=== PATIENT | female | born 1960 | race Two or more races ===

== ENCOUNTER 2017-04-20 16:32 | Emergency (ER) | payer BC, OTHER ==
[~2017-04-20] VITALS: Ht 160 cm; Wt 66.0 kg
[~2017-04-20 16:32] MED LIST: ACET500C5 PO; AMO500 PO
[2017-04-20 16:40] VITALS: Ht 160 cm; Wt 66.0 kg
[2017-04-20] MEDS ORDERED: SOD CHLORIDE 0.9% 1,000 ML IV STA (19:14)
[2017-04-20] MEDS ORDERED: SOD CHLORIDE 0.9% 1,000 ML IV ONE (19:30)
[2017-04-20 19:52] LABS: BASOPHIL # 0.1 10^3/ul (0.0-0.1); BASOPHILS % 0.7 % (0.0-2.0); EOSINOPHILS # 0.1 10^3/ul (0.0-0.5); EOSINOPHILS % 1.4 % (0.0-7.0); HEMATOCRIT 39.1 % (37.0-47.0); HEMOGLOBIN 13.1 g/dl (12.0-16.0); LYMPHOCYTES # 2.3 10^3/ul (0.8-2.9); LYMPHOCYTES % 31.8 % (15.0-51.0); MEAN CORPUSCULAR HEMOGLOBIN 28.7 pg (29.0-33.0); MEAN CORPUSCULAR HGB CONC 33.5 g/dl (32.0-37.0); MEAN CORPUSCULAR VOLUME 85.7 fl (82.0-101.0); MEAN PLATELET VOLUME 9.9 fl (7.4-10.4); MONOCYTE # 0.4 10^3/ul (0.3-0.9); MONOCYTES % 5.5 % (0.0-11.0); NEUTROPHILS % 60.1 % (39.0-77.0); PLATELET COUNT 239 10^3/UL (140-415); RED BLOOD COUNT 4.56 10^6/ul (4.20-5.40); RED CELL DISTRIBUTION WIDTH 11.8 % (11.5-14.5); WHITE BLOOD COUNT 7.3 10^3/ul (4.8-10.8)
[2017-04-20] MEDS ORDERED: CHLO50TA15 PO (20:12)
[2017-04-20 20:13] LABS: ALBUMIN 4.6 g/dl (3.3-4.9); ALBUMIN/GLOBULIN RATIO 1.21; BILIRUBIN,INDIRECT 0.2 mg/dl (0-1.1); BILIRUBIN,TOTAL 0.2 mg/dl (0.2-1.3); CALCIUM 9.3 mg/dl (8.4-10.2); CREATININE 0.8 mg/dl (0.44-1.00); POTASSIUM 3.4 mmol/L (3.5-5.1); TOTAL PROTEIN 8.4 g/dl (6.1-8.1)
[2017-04-20] MEDS ORDERED: ASPI-664 PO (20:13)
[2017-04-20] MEDS ORDERED: LOSA25TA5 PO (20:13)
[2017-04-20] MEDS ORDERED: LINA5TAB PO (20:14)
[2017-04-20] MEDS ORDERED: METF850T PO (20:14)
[2017-04-20] MEDS ORDERED: FLUT9.9S NASAL (20:15)
[2017-04-20 20:46] VITALS: BP 129/67; PULSE 65; RESP 18
--- NOTE | 2017-04-20 20:49 | ERD ---
ER Documentation Chief Complaint Date/Time DATE: 04/20/17 TIME: 20:48 Chief Complaint PT referred by clinic for blood sugar 543. HPI This 56-year-old female was sent from her PCPs clinic for blood sugar of 543 in the clinic. Patient had no symptoms and felt well. She is taking her on oral diabetic medications at home normally. She has had no fever chills. She has no nausea or vomiting. ROS All systems reviewed and are negative except as per history of present illness. Medications Home Meds Reported Medications Fluticasone Propionate (Flonase Allergy Relief) 9.9 Ml [place].susp, 2 SPRAY NASAL DAILY, #1 BOTTLE TO EACH NOSTRIL 04/20/17 Linagliptin (TRADJENTA) 5 Mg Tablet, 5 MG PO DAILY, TAB 04/20/17 Metformin Hcl* (Metformin Hcl*) 850 Mg Tablet, 850 MG PO WITH MEALS, #60 TAB 04/20/17 Aspirin* (Aspirin* EC) 81 Mg Tablet.dr, 81 MG PO DAILY, TAB 04/20/17 Losartan Potassium* (Losartan Potassium*) 25 Mg Tablet, 25 MG PO DAILY, TAB 04/20/17 Chlorthalidone* (Chlorthalidone*) 50 Mg Tablet, 50 MG PO DAILY, TAB 04/20/17 Discontinued Scripts Acetaminophen* (Tylophen*) 500 Mg Capsule, 1 CAP PO Q6H Y for PAIN AND OR ELEVATED TEMP, #20 CAP Prov:MYRA VIERA PA-C 11/30/15 Amoxicillin* (Amoxicillin*) 500 Mg Cap, 500 MG PO BID for 10 Days, CAP Prov:MYRA VIERA PA-C 11/30/15 Allergies Allergies: Coded Allergies: No Known Allergy (Unverified , 04/20/17) PMhx/Soc History of Surgery: Yes (hysterectomy, left middle finger surgery, cholecystectomy) Anesthesia Reaction: No Hx Neurological Disorder: No Hx Respiratory Disorders: No Hx Cardiac Disorders: Yes (hypertesion) Hx Psychiatric Problems: No Hx Miscellaneous Medical Probl: Yes (diabetes) Hx Alcohol Use: No Hx Substance Use: No Hx Tobacco Use: No Smoking Status: Never smoker Physical Exam Vitals Vital Signs Date Time Temp Pulse Resp B/P Pulse Ox O2 Delivery O2 Flow Rate FiO2 04/20/17 19:50 67 18 133/59 98 Room Air 04/20/17 16:40 98.4 66 18 139/74 99 Physical Exam Const: [] No distress Head: Atraumatic Eyes: Normal Conjunctiva ENT: Normal External Ears, Nose and Mouth. Neck: Full range of motion..~ No meningismus. Resp: Clear to auscultation bilaterally Cardio: Regular rate and rhythm, no murmurs Abd: Soft, non tender, non distended. Normal bowel sounds Skin: No petechiae or rashes Back: No midline or flank tenderness Ext: No cyanosis, or edema Neur: Awake and alert Psych: Normal Mood and Affect Result Diagram: 04/20/17191904/20/171919 Results 24 hrs Laboratory Tests Test 04/20/17 19:20 04/20/17 19:33 White Blood Count 7.310^3/ul Red Blood Count 4.5610^6/ul Hemoglobin 13.1g/dl Hematocrit 39.1% Mean Corpuscular Volume 85.7fl Mean Corpuscular Hemoglobin 28.7pg Mean Corpuscular Hemoglobin Concent 33.5g/dl Red Cell Distribution Width 11.8% Platelet Count 30608^3/UL Mean Platelet Volume 9.9fl Neutrophils % 60.1% Lymphocytes % 31.8% Monocytes % 5.5% Eosinophils % 1.4% Basophils % 0.7% Nucleated Red Blood Cells % 0.0/100WBC Neutrophils # (Manual) 4.410^3/ul Lymphocytes # 2.310^3/ul Monocytes # 0.410^3/ul Eosinophils # 0.110^3/ul Basophils # 0.110^3/ul Nucleated Red Blood Cells # 0.010^3/ul Sodium Level 137mmol/L Potassium Level 3.4mmol/L Chloride Level 96mmol/L Carbon Dioxide Level 28mmol/L Anion Gap 16 Blood Urea Nitrogen 29mg/dl Creatinine 0.80mg/dl Glucose Level 333mg/dl Calcium Level 9.3mg/dl Total Bilirubin 0.2mg/dl Direct Bilirubin 0.00mg/dl Indirect Bilirubin 0.2mg/dl Aspartate Amino Transf (AST/SGOT) 57IU/L Alanine Aminotransferase (ALT/SGPT) 69IU/L Alkaline Phosphatase 163IU/L Total Protein 8.4g/dl Albumin 4.6g/dl Globulin 3.80g/dl Albumin/Globulin Ratio 1.21 Lipase 224U/L Bedside Glucose 333mg/dL Current Medications Medications (Trade) Dose Ordered Sig/Sadia Route PRN Reason Start Time Stop Time Status Last Admin Dose Admin Sodium Chloride 1,000 ml @ 1,000 mls/hr Q1H STAT IV 04/20/17 19:14 04/20/17 20:13 DC 04/20/17 19:47 Sodium Chloride (NS) 1,000 ml @ 1,000 mls/hr Q1H ONCE IV 04/20/17 19:30 04/20/17 20:29 DC 04/20/17 19:47 Procedures/MDM Diabetic hyperglycemia without any signs of infection or precipitating factors. Patient stated that she had just 8 when they took her sugar and she feels otherwise fine. She was given 2 L of normal saline emergency room help lower the sugar which was only 333 prior to administration no signs of diabetic ketoacidosis or any other metabolic abnormality. I am going to discharge her home with primary care follow-up and return precautions. Departure Diagnosis: Primary Impression: Hyperglycemia Condition: Stable Patient Instructions: Hyperglycemia (High Blood Sugar) Additional Instructions: Llame al doctor MAROBERT y hadley td SUGEY PARA DENTRO DE 2-3 [place].Dgale a la secretaria que nosotros le instruimos hacer esta sugey.Avise o llame si lazcano condicin se empeora antes de la sugey. Regresa aqui si peor o no mejor. JD MCLEAN DO Apr 20, 2017 20:49
== END 2017-04-20 20:50 | disposition home or self-care (01) ==
LOC: E/R 16:32
DX: E11.65 Type 2 diabetes mellitus with hyperglycemia (principal); I10 Essential (primary) hypertension; Z79.84 Long term (current) use of oral hypoglycemic drugs; Z79.82 Long term (current) use of aspirin
CPT/HCPCS: 36415; 80053; 82962; 83690; 85025; 96360; J7030; Z7502

== ENCOUNTER 2017-05-15 03:50 | Emergency (ER) | payer BC ==
[~2017-05-15] VITALS: Ht 152.4 cm; Wt 67.5 kg
[~2017-05-15 03:50] MED LIST changes: -ACET500C5 PO; -AMO500 PO; +ASPI-664 PO; +CHLO50TA15 PO; +FLUT9.9S NASAL; +LINA5TAB PO; +LOSA25TA5 PO; +METF850T PO
[2017-05-15 03:56] VITALS: Ht 152.4 cm; Wt 67.5 kg
[2017-05-15] MEDS ORDERED: KETOROLAC 30 MG INJ IM STA (04:19)
[2017-05-15] MEDS ORDERED: CYCL-319 PO (04:22)
[2017-05-15] MEDS ORDERED: IBUP-1542 PO (04:22)
[2017-05-15 04:50] VITALS: BP 139/70; PULSE 66; RESP 20; TEMP 98.2
--- NOTE | 2017-05-17 20:13 | ERD ---
ER Documentation Chief Complaint Date/Time DATE: 05/17/17 TIME: 20:10 Chief Complaint Back pain since Thursday. Pt has been given Neurontin by PMD HPI 56 year old female presents to the ED lining of left lumbar back pain since Thursday. She states it is worse with movement Patient rates the pain moderate in severity. She denies any saddle anesthesia or bowel/bladder incontinence. Denies fever. Patient states that she has seen her primary care physician and was given Neurontin for the pain. ROS All systems reviewed and are negative except as per history of present illness. Medications Home Meds Active Scripts Ibuprofen* (Motrin*) 600 Mg Tab, 600 MG PO Q6H Y for PAIN AND OR ELEVATED TEMP, #30 TAB Prov:ANNA MITCHELL PA-C 05/15/17 Cyclobenzaprine Hcl* (Cyclobenzaprine Hcl*) 10 Mg Tablet, 10 MG PO TID, #30 TAB Prov:ANNA MITCHELL PA-C 05/15/17 Reported Medications Fluticasone Propionate (Flonase Allergy Relief) 9.9 Ml [place].susp, 2 SPRAY NASAL DAILY, #1 BOTTLE TO EACH NOSTRIL 04/20/17 Linagliptin (TRADJENTA) 5 Mg Tablet, 5 MG PO DAILY, TAB 04/20/17 Metformin Hcl* (Metformin Hcl*) 850 Mg Tablet, 850 MG PO WITH MEALS, #60 TAB 04/20/17 Aspirin* (Aspirin* EC) 81 Mg Tablet.dr, 81 MG PO DAILY, TAB 04/20/17 Losartan Potassium* (Losartan Potassium*) 25 Mg Tablet, 25 MG PO DAILY, TAB 04/20/17 Chlorthalidone* (Chlorthalidone*) 50 Mg Tablet, 50 MG PO DAILY, TAB 04/20/17 Allergies Allergies: Coded Allergies: No Known Allergy (Unverified , 04/20/17) PMhx/Soc History of Surgery: Yes (hysterectomy, left middle finger surgery, cholecystectomy) Anesthesia Reaction: No Hx Neurological Disorder: No Hx Respiratory Disorders: No Hx Cardiac Disorders: Yes (hypertesion) Hx Psychiatric Problems: No Hx Miscellaneous Medical Probl: Yes (diabetes) Hx Alcohol Use: No Hx Substance Use: No Hx Tobacco Use: No Smoking Status: Never smoker Physical Exam Vitals Vital Signs Date Time Temp Pulse Resp B/P Pulse Ox O2 Delivery O2 Flow Rate FiO2 9/8/17 04:50 98.2 66 20 139/70 99 Room Air 05/15/17 03:56 98.0 69 22 145/66 99 Physical Exam GENERAL: WD/WN, in no apparent distress, non-toxic appearing HENT: NC/AT EYES: Conjunctiva normal NECK: Supple, no masses felt PULM: Normal labored breathing CV: Good capillary refill GI: Non-distended, no guarding BACK: no deformities noted, normal spinal curvature TTP on left lumbar, non tender on spine EXT: No clubbing, cyanosis, or edema NEURO: Moves on all fours, sensation intact, normal gait SKIN: intact PSYCH: Normal mood Results 24 hrs Current Medications Medications (Trade) Dose Ordered Sig/Asdia Route PRN Reason Start Time Stop Time Status Last Admin Dose Admin Ketorolac Tromethamine (Toradol) 30 mg ONCE STAT IM 05/15/17 04:19 05/15/17 04:21 DC 05/15/17 04:29 Procedures/MDM This 56-year-old female presents to the emergency department with left lumbar back pain and spasm. There is no evidence of cauda equina or vertebral fracture at this time. Patient is neurovascular intact to be discharged home to follow with primary care physician for further evaluation management and possible physical therapy. The ED patient was given Toradol, she was given a prescription for Motrin and Flexeril. Discussed return to the ER for any worsening symptoms. She understands and agrees with this plan Departure Diagnosis: Primary Impression: Back pain Additional Impression: Muscle spasm Condition: Stable Patient Instructions: Back Pain (Acute Or Chronic), Muscle Spasm Additional Instructions: Visite a lazcano jun felix para un EXAMEN.Regrese a estas instalaciones si no se mejora janett esperbamos o janett le dijimos. [place] toda la medicina esteban y janett se le indic. La medicina que se le recet puede causarle sueo.NO DEBE MANEJAR NI OPERAR MAQUINARIAS PELIGROSAS mientras esta tomando esta medicina! ANNA MITCHELL PA-C May 17, 2017 20:13 ANNA MITCHELL PA-C May 17, 2017 20:13
== END 2017-05-15 04:52 | disposition home or self-care (01) ==
LOC: FTE 03:50
DX: M54.5 Low back pain (principal); M62.830 Muscle spasm of back; I10 Essential (primary) hypertension; E11.9 Type 2 diabetes mellitus without complications; Z79.84 Long term (current) use of oral hypoglycemic drugs; Z79.82 Long term (current) use of aspirin
CPT/HCPCS: 96372; J1885; Z7502

== ENCOUNTER 2018-12-14 09:47 | Emergency (ER) | payer BC ==
[~2018-12-14] VITALS: Ht 152.4 cm; Wt 67.2 kg
[~2018-12-14 09:47] MED LIST changes: -ASPI-664 PO; +ASPI-817 PO; -CHLO50TA15 PO; +CYCL10TA7 PO; +HYG50 PO; +IBUP-1542 PO; +LOSA25TA12 PO; -LOSA25TA5 PO; -METF850T PO; +METF850T13 PO
[2018-12-14 10:16] VITALS: BP 131/67; PULSE 90; RESP 16; Ht 152.4 cm; Wt 67.2 kg
[2018-12-14] MEDS ORDERED: SODI30SP2 NS (10:52)
--- NOTE | 2018-12-14 10:55 | ERD ---
ER Documentation Chief Complaint Chief Complaint NOSE BLEED SINCE LAST NIGHT HPI 58-year-old female presents with a nosebleed last night. Stopped and then recurred this morning. Is currently stopped. She denies any recent URIs, history of trauma. Patient just completed a bowel prep for scheduled endoscopy today but canceled her endoscopy due to the nosebleed. She denies any bleeding per rectum, urine or from the gums or any bruising or additional symptoms. ROS All systems reviewed and are negative except as per history of present illness. Medications Home Meds Active Scripts Sodium Chloride (Saline Nasal [place]) 30 Ml [place], 30 ML NS QID for 7 Days, SPRAY Prov:TRISTEN MANZANO MD 12/14/18 Ibuprofen* (Motrin*) 600 Mg Tab, 600 MG PO Q6H PRN for PAIN AND OR ELEVATED TEMP, #30 TAB Prov:ANNA MITCHELL PA-C 05/15/17 Cyclobenzaprine Hcl* (Cyclobenzaprine Hcl*) 10 Mg Tablet, 10 MG PO TID, #30 TAB Prov:ANNA MITCHELL PA-C 05/15/17 Reported Medications Fluticasone Propionate (Flonase Allergy Relief) 9.9 Ml [place].susp, 2 SPRAY NASAL DAILY, #1 BOTTLE TO EACH NOSTRIL 04/20/17 Linagliptin (TRADJENTA) 5 Mg Tablet, 5 MG PO DAILY, TAB 04/20/17 Metformin Hcl* (Metformin Hcl*) 850 Mg Tablet, 850 MG PO WITH MEALS, #60 TAB 04/20/17 Aspirin* (Aspirin* EC) 81 Mg Tablet.dr, 81 MG PO DAILY, TAB 04/20/17 Losartan Potassium* (Losartan Potassium*) 25 Mg Tablet, 25 MG PO DAILY, TAB 04/20/17 Chlorthalidone* (Chlorthalidone*) 50 Mg Tablet, 50 MG PO DAILY, TAB 04/20/17 Allergies Allergies: Coded Allergies: No Known Allergy (Unverified , 04/20/17) PMhx/Soc History of Surgery: Yes (hysterectomy, left middle finger surgery, cholecystectomy) Anesthesia Reaction: No Hx Neurological Disorder: No Hx Respiratory Disorders: No Hx Cardiac Disorders: Yes (hypertesion) Hx Psychiatric Problems: No Hx Miscellaneous Medical Probl: Yes (diabetes) Hx Alcohol Use: No Hx Substance Use: No Hx Tobacco Use: No FmHx Family History: No diabetes, No coronary disease, No other Physical Exam Vitals Vital Signs Date Temp Pulse Resp B/P (MAP) Pulse Ox O2 O2 Flow FiO2 Time Delivery Rate 12/14/18 99.1 90 16 131/67 97 10:16 (88) Physical Exam Const: No acute distress Head: Atraumatic Eyes: Normal Conjunctiva ENT: Normal External Ears, Nose and Mouth. No appreciable blood in the nares no septal hematoma. No active bleeding. Neck: Full range of motion. No meningismus. Resp: Clear to auscultation bilaterally Cardio: Regular rate and rhythm, no murmurs Abd: Soft, non tender, non distended. Normal bowel sounds Skin: No petechiae or rashes Back: No midline or flank tenderness Ext: No cyanosis, or edema Neur: Awake and alert Psych: Normal Mood and Affect Procedures/MDM Patient presents with epistaxis which has spontaneously resolved. History, signs and symptoms do not suggest blood dyscrasias there is no active bleeding and patient is well-appearing. There is no history of trauma. She will be discharged home with nasal saline, instructions on proper stoppage of nosebleed with pressure and head down, primary care follow-up and return precautions. The patient was stable with no new complaints during the ER course. Clinically, there is no current evidence to suggest meningitis, sepsis, acute abdomen, pneumonia, stroke, acute coronary syndrome, pulmonary embolism, aortic dissection or any other emergent condition appearing to require further evaluation or hospitalization. Patient counseled regarding my diagnostic impression and care plan. Prior to discharge all questions answered. Pt agrees with treatment plan and understands strict return precautions. Pt is instructed to follow up with primary care provider within 24-48 hours. Precautionary instructions provided including instructions to return to the ER if not improving or for any worsening or changing symptoms or concerns. Departure Diagnosis: Primary Impression: Epistaxis Condition: Stable Patient Instructions: Epistaxis (Adult) Referrals: NO PRIMARY,CARE PHYSICIAN (PCP) Additional Instructions: pone presion para 100 segundos o 5 minutos y saurabh abajo. Examines normal hoy. Cheque otro vez con lazcano doctor primario en el proximo coronado or regresa para mas o nueva simptomas. TRISTEN MANZANO MD Dec 14, 2018 10:55
== END 2018-12-14 11:30 | disposition home or self-care (01) ==
LOC: FTE 09:47
DX: R04.0 Epistaxis (principal); I10 Essential (primary) hypertension; E11.9 Type 2 diabetes mellitus without complications; Z79.82 Long term (current) use of aspirin; Z79.84 Long term (current) use of oral hypoglycemic drugs
CPT/HCPCS: 99282

== ENCOUNTER 2019-01-13 12:50 | Day surgery (SDC) | payer BC ==
[~2019-01-13] VITALS: Ht 152.4 cm; Wt 67.5 kg
[~2019-01-13 12:50] MED LIST changes: +SODI30SP2 NS
[2019-01-13 13:55] VITALS: Ht 152.4 cm; Wt 67.5 kg
[2019-01-13] MEDS ORDERED: JARDIANCE (14:14)
[2019-01-13] MEDS ORDERED: BASAGLAR (14:14)
[2019-01-13] MEDS ORDERED: APIDRA (14:14)
[2019-01-13 14:30] VITALS: BP 113/56; PULSE 57; RESP 19
[2019-01-13 15:20] VITALS: BP 105/58; PULSE 54; RESP 15
[2019-01-13] MEDS ORDERED: MIDAZOLAM 1 MG/ML 2 ML INJ ONE ×2 (15:29→15:30)
[2019-01-13] MEDS ORDERED: FENTAnyl 50 MCG/ML VIAL ONE (15:29)
[2019-01-13 15:35] VITALS: BP 97/53; PULSE 58; RESP 18
== END 2019-01-13 15:53 | disposition home or self-care (01) ==
LOC: GIL 12:50
PROVIDERS: ATTEND Internal Medicine Gastroenterology
DX: Z12.11 Encounter for screening for malignant neoplasm of colon (principal); K64.8 Other hemorrhoids; I10 Essential (primary) hypertension; E11.9 Type 2 diabetes mellitus without complications
CPT/HCPCS: 45378; 82962; J2250; J3010; Z7610